=== PATIENT | female | born 1960 | race Caucasian/White ===

== ENCOUNTER 2024-11-09 10:46 | Day surgery (SDC) | payer MEDICARE ==
[2024-11-08 08:55] VITALS: BMI 31.7
[2024-11-09] MEDS ORDERED: Bupivacaine PF 0.5% 30 ML VIAL ONE (11:48)
[2024-11-09] MEDS ORDERED: PROPOFOL 20 ML ONE (11:49)
[2024-11-09] MEDS ORDERED: fentaNYL 50 mcg/mL 1 mL Vial ONE ×2 (11:49→13:14)
[2024-11-09] MEDS ORDERED: Dexamethasone 4 mg/ml Vial ONE (11:50)
[2024-11-09] MEDS ORDERED: Ondansetron PF 4 MG/2 ML Vial ONE (11:50)
[2024-11-09] MEDS ORDERED: Lidocaine 1% PF 5 ML VIAL ONE (11:50)
[2024-11-09] MEDS ORDERED: CEFAZOLIN 2 GM VIAL ONE (11:56)
[2024-11-09] MEDS ORDERED: traMADol HCl 50 MG TAB ONE (13:42)
== END 2024-11-09 14:20 | disposition home or self-care (01) ==
LOC: CSHSDC 10:46
PROVIDERS: ATTEND Podiatrist Foot & Ankle Surgery
DX: M20.21 Hallux rigidus, right foot (principal); M10.9 Gout, unspecified; I10 Essential (primary) hypertension; E78.5 Hyperlipidemia, unspecified; Z79.899 Other long term (current) drug therapy; Z98.890 Other specified postprocedural states; Z71.89 Other specified counseling; Z88.8 Allergy status to other drugs, medicaments and biological substances; Z88.5 Allergy status to narcotic agent
CPT/HCPCS: 28291; 73620; C1776 ×2; J0665; J1100; J2405; J2704; J3010